=== PATIENT | female | born 1945 | race Caucasian/White ===

== ENCOUNTER → 2017-07-12 | Outpatient (CLI) | payer MEDICARE, BC ==
[~2017-07-12] MED LIST: AMITRIPTYLINE H10 M3; ASPIR 8181 MG PO; CARDIZEM CD180 MG PO; FLEXERIL PO; GABAPENTIN 100100 MG; GLUCOSAMINE HC500 MG PO; HYDROCODON-ACE1 EAC7 PO; HYDROCODONE-AP1 EAC6 PO; LISINOPRIL10 MG PO; MEDROLDOSEPACK PO; NAPROSYN375 MG PO; OMEPRAZOLE 20 M20 MG PO; OPTIFLEX-C400 MG PO; OXYCONTIN10 M1; TIMOPTIC2.5 M1; TRAVATAN Z2.5 ML; VITAMIN C1000 MG PO; [UNRECOGNIZED DRUG - OTHER]
== END ==
LOC: M.RAD 13:02
DX: Z12.31 Encounter for screening mammogram for malignant neoplasm of breast (principal); M85.88 Other specified disorders of bone density and structure, other site; Z78.0 Asymptomatic menopausal state

== ENCOUNTER → 2017-07-26 | Outpatient (CLI) | payer MEDICARE, BC | LOC: M.RAD 10:23 | DX: M79.671 Pain in right foot (principal); M20.41 Other hammer toe(s) (acquired), right foot; M20.42 Other hammer toe(s) (acquired), left foot; I25.10 Atherosclerotic heart disease of native coronary artery without angina pectoris ==

== ENCOUNTER 2017-10-30 20:01 | Emergency (ER) | payer OTHER, MEDICARE, BC ==
[~2017-10-30] VITALS: Ht 165.1 cm; Wt 47.6 kg
[~2017-10-30 20:01] MED LIST changes: -ASPIR 8181 MG PO; -GLUCOSAMINE HC500 MG PO; -HYDROCODONE-AP1 EAC6 PO; -MEDROLDOSEPACK PO; -OMEPRAZOLE 20 M20 MG PO; -OPTIFLEX-C400 MG PO; -VITAMIN C1000 MG PO
[2017-10-30] MEDS ORDERED: ASPIR 8181 MG PO (20:23)
[2017-10-30] MEDS ORDERED: VITAMIN C1000 MG PO (20:23)
[2017-10-30] MEDS ORDERED: GLUCOSAMINE HC500 MG PO (20:24)
[2017-10-30] MEDS ORDERED: OMEPRAZOLE 20 M20 MG PO (20:24)
[2017-10-30] MEDS ORDERED: OPTIFLEX-C400 MG PO (20:24)
[2017-10-30] MEDS ORDERED: HYDROCODONE-AP1 EAC6 PO (21:15)
[2017-10-30] MEDS ORDERED: MEDROLDOSEPACK PO (21:17)
[2017-10-30 22:44] VITALS: BP 156/63
== END 2017-10-30 22:45 | disposition home or self-care (01) ==
LOC: M.ERS 20:01
DX: S16.1XXA Strain of muscle, fascia and tendon at neck level, initial encounter (principal); S00.83XA Contusion of other part of head, initial encounter; M25.561 Pain in right knee; H91.92 Unspecified hearing loss, left ear; I10 Essential (primary) hypertension; M85.80 Other specified disorders of bone density and structure, unspecified site; M81.0 Age-related osteoporosis without current pathological fracture; Z90.89 Acquired absence of other organs; Z88.0 Allergy status to penicillin; Z88.2 Allergy status to sulfonamides; V49.49XA Driver injured in collision with other motor vehicles in traffic accident, initial encounter; Y93.I9 Activity, other involving external motion; Y92.89 Other specified places as the place of occurrence of the external cause; Y99.8 Other external cause status

== ENCOUNTER → 2017-11-09 | Outpatient (CLI) | payer OTHER ==
[~2017-11-09] MED LIST changes: +ASPIR 8181 MG PO; +GLUCOSAMINE HC500 MG PO; +HYDROCODONE-AP1 EAC6 PO; +MEDROLDOSEPACK PO; +OMEPRAZOLE 20 M20 MG PO; +OPTIFLEX-C400 MG PO; +VITAMIN C1000 MG PO
== END ==
LOC: M.MRI 16:05
DX: S83.241A Other tear of medial meniscus, current injury, right knee, initial encounter (principal); M85.80 Other specified disorders of bone density and structure, unspecified site; X58.XXXA Exposure to other specified factors, initial encounter; Y93.89 Activity, other specified; Y92.89 Other specified places as the place of occurrence of the external cause; Y99.8 Other external cause status

== ENCOUNTER → 2018-08-13 | Outpatient (CLI) | payer MEDICARE | LOC: M.RAD 13:05 | DX: Z12.31 Encounter for screening mammogram for malignant neoplasm of breast (principal) ==

== ENCOUNTER → 2019-01-03 | Outpatient (CLI) | payer MEDICARE, BC ==
[2019-01-03 14:36] LABS: CREATININE 1.3 mg/dL (0.6-1.3)
== END ==
LOC: M.CT 14:12
PROVIDERS: Family Medicine
DX: K57.30 Diverticulosis of large intestine without perforation or abscess without bleeding (principal)

== ENCOUNTER 2019-01-09 05:07 | Emergency (ER) | payer MEDICARE, BC ==
[~2019-01-09] VITALS: Ht 162.6 cm; Wt 48.5 kg
[2019-01-09 05:13] VITALS: BP 181/69
[2019-01-09] MEDS ORDERED: FISH OIL 1,001000 M2 PO (05:22)
[2019-01-09] MEDS ORDERED: TUMS PO (05:22)
[2019-01-09] MEDS ORDERED: PREDNISONE50 MG PO (05:24)
[2019-01-09] MEDS ORDERED: DIPHENHIST50 MG PO (05:24)
== END 2019-01-09 05:36 | disposition home or self-care (01) ==
LOC: M.ERS 05:07
DX: L53.9 Erythematous condition, unspecified (principal); T78.40XA Allergy, unspecified, initial encounter; I10 Essential (primary) hypertension; M81.0 Age-related osteoporosis without current pathological fracture; Z98.890 Other specified postprocedural states; Z88.2 Allergy status to sulfonamides; Z88.0 Allergy status to penicillin; X58.XXXA Exposure to other specified factors, initial encounter

== ENCOUNTER 2019-04-09 13:24 | Observation (INO) | payer MEDICARE, BC ==
[~2019-04-09] VITALS: Ht 162.6 cm; Wt 49.9 kg
[~2019-04-09 13:24] MED LIST changes: +CARDIZEM CD 18180 M3 PO; -CARDIZEM CD180 MG PO; +DIPHENHIST50 MG PO; +FISH OIL 1,001000 M2 PO; +OMEPRAZOLE 20 M20 M1 PO; -OMEPRAZOLE 20 M20 MG PO; +PREDNISONE50 MG PO; +TUMS PO
[2019-04-09 13:32] VITALS: BP 150/58
[2019-04-09 13:51] LABS: ABSOLUTE BASOPHILS 0.1 thou/uL (0.0-0.2); ABSOLUTE EOSINOPHILS 0.2 thou/uL (0.0-0.7); ABSOLUTE LYMPHOCYTES 1.7 thou/uL (0.8-5.3); ABSOLUTE MONOCYTES 1.2 thou/uL (0.0-1.2); ABSOLUTE NEUTROPHILS 8.1 thou/uL (1.6-8.1); BASOPHILS 0.8 %; EOSINOPHILS 1.4 %; HEMOGLOBIN 13.3 gm/dL (12.0-15.0); LYMPHOCYTES 14.9 %; MCH 31.8 pg (26.0-34.0); MCHC 34.9 g/dL (28.0-37.0); MCV 91.2 fL (80.0-100.0); MONOCYTES 10.6 %; MPV 7.8 fl. (7.2-11.1); NUCLEATED RBCS 0 /100WBC; PLATELET COUNT* 238 thou/uL (150-400); POLYS 72.3 %; RBC 4.17 mil/uL (4.20-5.00); RDW-CV 13.1 % (10.5-14.5); WBC 11.3 thou/uL (4.0-11.0)
[2019-04-09 13:55] LABS: URINE BILIRUBIN NEGATIVE (Negative); URINE BLOOD 1+ (Negative); URINE CLARITY CLEAR; URINE COLOR YELLOW; URINE GLUCOSE-RANDOM NEGATIVE (Negative); URINE KETONES NEGATIVE (Negative); URINE LEUKOCYTES-REFLEX NEGATIVE (Negative); URINE NITRITE-REFLEX NEGATIVE (Negative); URINE PROTEIN NEGATIVE (Negative); URINE SPECIFIC GRAVITY <= 1.005 (1.005-1.030); URINE UROBILINOGEN 0.2 E.U./dl (0.2-1.0)
[2019-04-09 14:00] LABS: CALCIUM 9.2 mg/dL (8.5-10.1); CREATININE 1.3 mg/dL (0.6-1.3); POTASSIUM 3.9 mmol/L (3.5-5.1)
[2019-04-09 14:04] LABS: ALBUMIN 4.1 g/dL (3.4-5.0); TOTAL BILIRUBIN 0.8 mg/dL (<0.1-1.0); TOTAL PROTEIN 7.5 g/dL (6.4-8.2)
[2019-04-09 14:07] LABS: BACTERIA-REFLEX 1-9 Few /HPF (None Seen); CASTS None Seen /LPF (None Seen); CRYSTALS None Seen /LPF (None Seen); SQUAMOUS 0-3 Few /LPF (0-3); URINE RBC 0-2 Rare /HPF (0-2); URINE WBC-REFLEX 0-5 Rare /HPF (0-5)
[2019-04-09 17:08] VITALS: BP 154/61
[2019-04-09 19:48] VITALS: BP 138/53
[2019-04-09 23:50] VITALS: BP 151/49
[2019-04-10 03:50] VITALS: BP 106/43
[2019-04-10 04:03] LABS: CREATININE 1.1 mg/dL (0.6-1.3); MAGNESIUM 2.1 mg/dL (1.8-2.4); PHOSPHORUS* 4.6 mg/dL (2.5-4.9); POTASSIUM 4.6 mmol/L (3.5-5.1)
[2019-04-10 04:14] LABS: HEMATOCRIT 37.5 % (37.0-47.0); HEMOGLOBIN 12.6 gm/dL (12.0-15.0); MCH 30.9 pg (26.0-34.0); MCHC 33.6 g/dL (28.0-37.0); MCV 92.2 fL (80.0-100.0); MPV 8.4 fl. (7.2-11.1); RBC 4.07 mil/uL (4.20-5.00); RDW-CV 13.4 % (10.5-14.5); WBC 12.5 thou/uL (4.0-11.0)
[2019-04-10 08:30] VITALS: BP 123/59
--- NOTE | 2019-04-10 11:13 | EKG ---
[place] [address] ELECTROCARDIOGRAM REPORT Name: NESS ADEN Room: [address]R.#: [id number] Admission: 04/09/19 Attend Phys: Devonte Arauz DO Discharge: Date of : 41 Report #: [id number] THIS REPORT FOR: //name// [facility] ED Test Date: 2019-04-09 Test Time: 16:36:48 Pat Name: NESS ADEN Department: Room: [facility] Gender: F Lead Oracle Developer: DUNIA : 1945 Requested By: Elvira Victor Order Number: [id number] MD: Denzel Piedra Measurements Intervals [place] Rate: 69 P: 69 IA: 123 QRS: 0 QRSD: 80 T: 47 QT: 433 QTc: 464 Interpretive Statements Sinus rhythm No previous ECG available for comparison Electronically Signed On 04-10-2019 11:01:06 CDT by Denzel Piedra [email or web address] <ELECTRONICALLY SIGNED> By: Denzel Piedra MD, [facility] 04/10/19 1101 1636 1636 Denzel Piedra MD, FACC /EPI
[2019-04-10 13:50] VITALS: BP 106/43
[2019-04-10 14:02] VITALS: BP 106/43
[2019-04-10] MEDS ORDERED: OXYCODONE HCL 55 MG PO (14:12)
--- NOTE | 2019-04-14 14:06 | PATH ---
[address] [address] PATHOLOGY RPT PROCEDURE Name: NESS GONZALEZ Room: [address] Keith Weber#: [id number] Admission: 04/09/19 Date of : 41 Discharge: 04/10/19 Report #: [id number] Path Case #: [id number] [facility] Accession Number: [id number] . 01 Material submitted: . appendix - APPENDIX . 01 Clinical history: . Acute appendisitis . 02 Diagnosis: Appendix: - Acute appendicitis, periappendicitis and serositis. (INEZ/db; 04/14/2019) LBQ 04/14/2019 1146 Local . 02 Electronically signed: . Odell Ernandez MD, Pathologist NPI- [id number] . 01 Gross description: . Received in formalin labeled "Ness Gonzalez, appendix," is an appendix measuring 5.2 cm in length by 0.8 cm in diameter with a moderate amount of attached mesoappendix measuring up to 2.5 cm in thickness. The appendiceal serosa is smooth and pale rucker to focally hemorrhagic in appearance, partially covered in pale rucker fibrous adhesions. A disrupted area is noted on the serosa, measuring 0.7 x 0.4 cm and extending to within 1.5 cm of the proximal margin; the disruption does not extend to the lumen. The proximal margin is closed with a linear staple line; this area is inked black. Serial sectioning reveals a pinpoint to patent lumen measuring up to 0.2 cm in diameter and partially filled with pale rucker to dark brown, friable material. No lesions or perforations are identified grossly. Sectioning through the attached mesoappendix reveals yellow-brown cut surfaces. The proximal margin and bisected distal tip are submitted in cassette A1. Additional asset protection representative sections are submitted in cassette A2, to include the serosal surface disrupted area. ([facility]; 04/11/2019) XDC/XDC 04/11/[address] [place] [address] . 02 Pathologist provided ICD-10: K35.80 . 02 CPT . 111568 Specimen Comment: A courtesy copy of this report has been sent to [phone] Specimen Comment: [id number] Specimen Comment: Report sent to / [place] [address] PATHOLOGY RPT PROCEDURE Name: NESS GONZALEZ Room: [address] Keith Weber#: [id number] Admission: 04/09/19 Date of : 41 Discharge: 04/10/19 Report #: [id number] Path Case #: [id number] Performed at: 01 [facility] [place] [address], [place], [place] [id number] MD Deion Cruz MD Phone: [phone] Performed at: 02 [facility] [address], [place], [place] [id number] MD Odell Ernandez MD Phone: [phone]
--- NOTE | 2019-04-22 13:35 | OP ---
[address] [address] OPERATIVE REPORT Name: ADENNESS Gurdeep Room: [address] Tia#: [id number] Admission: 04/09/19 Attend Phys: Devonte Arauz DO Discharge: 04/10/19 Date of : 41 Report #: [id number] THIS REPORT FOR: //name// CC: Devonte Gomez DO DATE OF SERVICE: 04/09/2019 REFERRING PHYSICIAN: Santana Gomez DO PREOPERATIVE DIAGNOSIS: Acute appendicitis. POSTOPERATIVE DIAGNOSIS: Acute appendicitis with localized peritonitis. PROCEDURE: Laparoscopic appendectomy. SURGEON: Devonte Arauz DO. GEAR GRINDING MACHINE OPERATOR: Carol Gandara DO, PGY2, resident. SECOND RECREATION DIRECTOR: BRAXTON Tellez student ANESTHESIA: General endotracheal. ESTIMATED BLOOD LOSS: Less than 10 mL. COMPLICATIONS: None. DESCRIPTION OF PROCEDURE: After obtaining proper consents and discussing risks and complications with the patient, she was taken to the operating room, laid in the supine position, administered general endotracheal anesthetic. She was then prepped and draped in the usual sterile fashion. A timeout was performed. We confirmed the appropriate patient and procedure. Preoperative antibiotics were given. SCDs were in place. We then made a small supraumbilical skin incision with #11 scalpel blade. This was carried down through the skin into the subcutaneous tissue using electrocautery for hemostasis. Once the fascia was encountered, it was incised along the midline, grasped and elevated with Scar clamps and divided further. The peritoneum was then bluntly opened using a hemostat. We then placed 2-0 Vicryl sutures in a [id number] fashion to secure the Leonid trocar, which was then inserted and insufflation was begun. Once insufflation was complete, full visual inspection of the anterior abdominal organs was performed. This revealed a very redundant and loosely attached right colon and transverse colon. The liver was quite large and did extend down below the umbilicus. There were no other gross abnormalities identified at this point, we then placed the patient in Trendelenburg position. A 5 [place] [address] OPERATIVE REPORT Name: NESS ADEN Room: [address] Keith Weber#: [id number] Admission: 04/09/19 Attend Phys: Devonte Arauz DO Discharge: 04/10/19 Date of : 41 Report #: [id number] trocar was placed. We then placed a 12 mm left lower quadrant trocar. I was then able to identify the cecum, which was actually in the upper right quadrant next to the liver. The cecum was grasped and elevated in a retrocecal position. We were able to identify the appendix, which was definitely inflamed, but showed no signs of rupture. I was then able to grasp and elevate the appendix and the mesoappendix was sequentially clamped and divided using the Harmonic scalpel until the appendix was attached only at its base, which was at the confluence of the tenia coli. I then used an Endo-BRENNA 45 mm purple load which was placed across the base of the appendix and fired. I then placed the appendix into an Endopouch. I checked the appendiceal stump and mesoappendiceal stump for any leak or bleeding, there was a small amount of bleeding from the mesoappendix, which was cauterized and this immediately stopped. We then again checked the anterior abdominal organs found no other gross abnormalities and at this point, we decided to stop the procedure. The insufflation was stopped, all air was released. Trocars were removed. The appendix was removed within the Endopouch through the umbilical port. The left lower quadrant fascia was closed using 0 Vicryl suture. The umbilical fascia was closed using the 2 previously placed 0 Vicryl sutures plus 2 additional 0 Vicryl sutures. Skin incisions were all closed using 4-0 Monocryl subcuticular stitches. Mastisol, Steri-Strips, sterile OpSite and pressure dressings were placed. The patient was awakened in the operating room and transported to recovery room in stable condition. <ELECTRONICALLY SIGNED> By: Devonte Arauz DO 04/22/19 1335 1838 1925Akumar Arauz DO /nt
== END 2019-04-10 14:50 | disposition home or self-care (01) ==
LOC: M.ERS 13:24 → M.TBA-ER 17:48 → M.ORTHSURG 20:01
PROVIDERS: Personal Emergency Response Attendant; ADMIT Surgery
DX: K35.30 Acute appendicitis with localized peritonitis, without perforation or gangrene (principal); I10 Essential (primary) hypertension; M81.0 Age-related osteoporosis without current pathological fracture; Z79.899 Other long term (current) drug therapy; Z23 Encounter for immunization

== ENCOUNTER → 2019-05-15 | Outpatient (CLI) | payer MEDICARE, BC ==
[~2019-05-15] MED LIST changes: +OXYCODONE HCL 55 MG PO
[2019-05-15 16:33] LABS: ABSOLUTE BASOPHILS 0.1 thou/uL (0.0-0.2); ABSOLUTE EOSINOPHILS 0.3 thou/uL (0.0-0.7); ABSOLUTE LYMPHOCYTES 1.6 thou/uL (0.8-5.3); ABSOLUTE MONOCYTES 0.9 thou/uL (0.0-1.2); ABSOLUTE NEUTROPHILS 6.8 thou/uL (1.6-8.1); BASOPHILS 1.1 %; HEMOGLOBIN 13.8 gm/dL (12.0-15.0); LYMPHOCYTES 16.7 %; MCH 31.6 pg (26.0-34.0); MCHC 34.4 g/dL (28.0-37.0); MCV 91.8 fL (80.0-100.0); MONOCYTES 9.7 %; MPV 8.2 fl. (7.2-11.1); NUCLEATED RBCS 0 /100WBC; PLATELET COUNT* 192 thou/uL (150-400); POLYS 69.5 %; RBC 4.36 mil/uL (4.20-5.00); RDW-CV 13.6 % (10.5-14.5); WBC 9.8 thou/uL (4.0-11.0)
[2019-05-15 17:35] LABS: ESR (SEDRATE) 8 mm/hr (0-30)
== END ==
LOC: M.LAB 16:03
PROVIDERS: Surgery
DX: R10.84 Generalized abdominal pain (principal)

== ENCOUNTER → 2020-04-28 | Outpatient (CLI) | payer MEDICARE, BC | LOC: M.RAD 04-20 11:48 | PROVIDERS: ATTEND Family Medicine | DX: Z12.31 Encounter for screening mammogram for malignant neoplasm of breast (principal); Z78.0 Asymptomatic menopausal state ==

== ENCOUNTER → 2020-11-09 | Outpatient (CLI) | payer MEDICARE, BC | LOC: M.ULTRA 13:24 | PROVIDERS: ATTEND Family Medicine | DX: N28.1 Cyst of kidney, acquired (principal); N28.9 Disorder of kidney and ureter, unspecified ==

== ENCOUNTER → 2020-12-07 | Outpatient (CLI) | payer MEDICARE, BC ==
[2020-12-07 15:39] LABS: URINE BILIRUBIN NEGATIVE (Negative); URINE BLOOD TRACE (Negative); URINE CLARITY CLEAR; URINE COLOR YELLOW; URINE GLUCOSE-RANDOM NEGATIVE (Negative); URINE KETONES NEGATIVE (Negative); URINE LEUKOCYTES-REFLEX NEGATIVE (Negative); URINE NITRITE-REFLEX NEGATIVE (Negative); URINE PROTEIN NEGATIVE (Negative); URINE UROBILINOGEN 0.2 E.U./dl (0.2-1.0)
[2020-12-07 15:55] LABS: ALBUMIN 4.3 g/dL (3.4-5.0); CALCIUM 9.9 mg/dL (8.5-10.1); CREATININE 1.1 mg/dL (0.6-1.3); PHOSPHORUS* 4.8 mg/dL (2.5-4.9)
== END ==
LOC: M.LAB 15:02
DX: I12.9 Hypertensive chronic kidney disease with stage 1 through stage 4 chronic kidney disease, or unspecified chronic kidney disease (principal); N17.9 Acute kidney failure, unspecified; N18.30 Chronic kidney disease, stage 3 unspecified

== ENCOUNTER → 2021-04-25 | Outpatient (CLI) | payer MEDICARE, BC | LOC: M.RAD 13:10 | PROVIDERS: ATTEND Family Medicine | DX: Z12.31 Encounter for screening mammogram for malignant neoplasm of breast (principal); N64.89 Other specified disorders of breast ==

== ENCOUNTER → 2021-04-29 | Outpatient (CLI) | payer MEDICARE, BC | LOC: M.RAD 04-28 08:17 | PROVIDERS: ATTEND Family Medicine | DX: R92.2 Inconclusive mammogram (principal); N63.21 Unspecified lump in the left breast, upper outer quadrant ==